=== PATIENT | female | born 1990 | race Caucasian/White ===

== ENCOUNTER → 2021-01-20 10:13 | Outpatient (CLI) | payer BC, SELFPAY ==
--- NOTE | ~2021-01-20 | XR_ITS ---
EXAMINATION: XR lumbar spine min 4V EXAM DATE: 01/20/2021 10:32 INDICATION: Lumbar spine pain without radiculopathy, nkt. TECHNIQUE: Lumber spine frontal, lateral, bilateral oblique projections. Coned down frontal and lat eral L5-S1 lumbar projections for interpretation. There is no prior study for comparison. FINDINGS: There is no spondylolysis. Mild lumbar facet arthropathy. The vertebral bodies are aligned in the AP dimension. Vertebral body and disc heights are well-maintained. Sacrum, sacroiliac joints, sacral arcuate lines are intact. Paraspinal soft tissue is unremarkable. There is IUD projecting ove r the central aspect of the pelvis. IMPRESSION: Mild lumbar facet arthropathy. Reviewed, dictated and finalized at location A.
== END ==
DX: M54.16 Radiculopathy, lumbar region (principal)
CPT/HCPCS: 72110

== ENCOUNTER 2024-06-17 10:36 | Emergency (ER) | payer OTHER, SELFPAY ==
--- NOTE | ~2024-06-17 | CT_ITS ---
Noncontrast CT scan of the cervical spine Technique: Multiple contiguous axial [address] images of the cervical spine were obtained and rec onstructed in 2D sagittal and coronal planes on the acquisition scanner. Dose reduction technique was used on this scan by utilizing automated exposure control, adjustment of the mA and/or kV according to patient size. The dose-length product (DLP) was 472.36 mGy-cm. Clinical History: Pain Findings: No fractures or dislocations. Unremarkable visualized bony structures. The intervertebral disc spaces are preserved. No prevertebral soft tissue swelling. Impression: No fracture or subluxation of the cervical spine. Reviewed, dictated and finalized at location . Impression: No fracture or subluxation of the cervical spine.
[2024-06-17 10:37] VITALS: BP 153/84; PULSE 78; RESP 16; TEMP 36.6; O2SAT 99
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
[2024-06-17] MEDS: SODIUM CHLORIDE 0.9% IV 1,000 ML 999 ML IV CONT (11:13)
[2024-06-17] MEDS: KETOROLAC 30 MG/ML VIAL (*BKC) IV PUSH (11:13)
[2024-06-17 11:19] LABS: BEDSIDEPREGUCG Negative (Negative)
[2024-06-17 13:06] VITALS: BP 142/93; PULSE 74; RESP 15; TEMP 36.8; O2SAT 98
== END 2024-06-17 13:08 | disposition home or self-care (01) ==
PROVIDERS: Emergency Provider Emergency Medicine; PCP Family Medicine
DX: M54.12 Radiculopathy, cervical region (principal); S16.1XXA Strain of muscle, fascia and tendon at neck level, initial encounter; Z87.891 Personal history of nicotine dependence; X58.XXXA Exposure to other specified factors, initial encounter
CPT/HCPCS: 72125; 81025; 96361; 96374; 99284; J1885; J7030